=== PATIENT | male | born 1955 | race Caucasian/White ===

== ENCOUNTER 2018-02-25 20:32 | Inpatient (IN) | payer BC ==
[2018-02-25 21:48] LABS: BASO # 0.1 K/uL (0.0-0.2); BASO % 0.5 % (0.0-2.0); EOS % 0.3 % (0.0-4.0); LYMPH # 0.4 K/uL (1.0-4.3); LYMPH % 3.7 % (20.0-40.0); MEAN CELL VOLUME 81.8 fl (80.0-94.0); MEAN CORPUSCULAR HEMOGLOBIN 28.2 pg (27.0-31.0); MEAN CORPUSCULAR HGB CONC 34.5 g/dL (33.0-37.0); MEAN PLATELET VOLUME 6.9 fl (7.2-11.7); MONO # 0.7 K/uL (0.0-0.8); MONO % 6.4 % (0.0-10.0); NEUT # 10.1 K/uL (1.8-7.0); NEUT % 89.1 % (50.0-75.0); PLATELET COUNT 204 K/uL (130-400); RBC 4.26 Mil/uL (4.40-5.90); RED CELL DISTRIBUTION WIDTH 14.9 % (11.5-14.5); WHITE BLOOD COUNT 11.4 K/uL (4.8-10.8)
[2018-02-25] MEDS ORDERED: Sodium Chloride 0.9% 1,000 ML IV STA ×2 (21:50→23:17)
[2018-02-25] MEDS ORDERED: Iohexol 240 (50 ml) PO ONE (21:50)
[2018-02-25 22:05] LABS: ALB/GLOB RATIO 1.7 (1.0-2.1); ALBUMIN 4.3 g/dL (3.5-5.0); ALT/SGPT 460 U/L (21-72); AST/SGOT 485 U/L (17-59); BLOOD UREA NITROGEN 15 mg/dl (9-20); CALCIUM 9.3 mg/dL (8.4-10.2); GFR AFRICAN-AMERICAN > 60; GFR NON-AFRICAN AMERICAN > 60
--- NOTE | 2018-02-25 22:08 | ED PDOC ---
HPI: Abdomen Time Seen by Provider: 02/25/18 20:40 Chief Complaint (Nursing): Abdominal Pain Chief Complaint (Provider): Abdominal Pain History Per: Patient History/Exam Limitations: no limitations Last Bowel Movement: Days Ago (x4) Additional Complaint(s): Patient is a 62 y/o male with history of hypertnesion, diabetes, and bph who presents to the ED complaining of abdominal pain with associated nausea. Patient states he has also no had a bowel movement in the past x4 days however notes that this is normal. Patient reports that he feels his abdomen is distended. He denies any vomiting or diarrhea. Past Medical History Reviewed: Historical Data, Nursing Documentation, Vital Signs Vital Signs: Last Vital Signs Temp 98.7 F 02/26/18 03:30 Pulse 98 H 02/26/18 04:00 Resp 15 02/26/18 04:00 BP 140/60 02/26/18 04:00 Pulse Ox 96 02/26/18 04:00 - Medical History PMH: Benign Prostatic Hyperplasia, Diabetes, HTN, Hypercholesterolemia Denies: Chronic Kidney Disease - Surgical History Other surgeries: bilateral hip replacement - Family History Family History: States: Unknown Family Hx - Social History Current smoker - smoking cessation education provided: No Alcohol: None Drugs: Denies - Home Medications Home Medications: Ambulatory Orders Medication Instructions Recorded Aspirin [Aspirin] 81 mg PO DAILY 03/17/15 Ezetimibe [Zetia] 10 mg PO DAILY 03/17/15 Hydrochlorothiazide 25 mg PO DAILY 03/17/15 [Hydrochlorothiazide] Losartan/Hydrochlorothiazide 1 tab PO DAILY 03/17/15 [Hyzaar 100-12.5 Tablet] Tamsulosin [Flomax] 0.4 mg PO DAILY 03/17/15 Atorvastatin [Lipitor] 20 mg PO DAILY 02/26/18 Docusate Sodium [Stool Softener] 100 mg PO DAILY 02/26/18 Furosemide [Lasix] 20 mg PO DAILY 02/26/18 - Allergies Allergies/Adverse Reactions: Allergies Allergy/AdvReac Type Severity Reaction Status Date / Time iodine Allergy RASH Verified 02/25/18 20:44 Review of Systems ROS Statement: Except As Marked, All Systems Reviewed And Found Negative Constitutional: Negative for: Fever Gastrointestinal: Positive for: Nausea, Abdominal Pain. Negative for: Vomiting , Diarrhea Physical Exam - Reviewed Nursing Documentation Reviewed: Yes Vital Signs Reviewed: Yes - Physical Exam Appears: Positive for: Uncomfortable Head Exam: Positive for: ATRAUMATIC, NORMOCEPHALIC Skin: Positive for: Normal Color, Warm, Dry Eye Exam: Positive for: EOMI, Normal appearance, PERRL ENT: Positive for: Normal ENT Inspection Neck: Positive for: Normal Cardiovascular/Chest: Positive for: Regular Rate, Rhythm. Negative for: Murmur Respiratory: Positive for: Normal Breath Sounds. Negative for: Respiratory Distress Gastrointestinal/Abdominal: Positive for: Bowel Sounds (diminished), Soft, Tenderness (diffusely tender), Distended (slightly). Negative for: Guarding, Rebound Back: Positive for: Normal Inspection Extremity: Positive for: Normal ROM. Negative for: Pedal Edema, Deformity Neurologic/Psych: Positive for: Alert, Oriented. Negative for: Motor/Sensory Deficits - Laboratory Results Result Diagrams: 02/26/18 04:50 02/26/18 04:50 - ECG O2 Sat by Pulse Oximetry: 97 (RA) Pulse Ox Interpretation: Normal - Critical Care Total Time (In Min): 45 Documented Critical Care: Time excludes all time spent performint seperately billable procedures Medical Decision Making Medical Decision Making: Time: 21:50 Initial plan: abdominal pain, rule out diverticulitis, appendicitis, constipation --CT abd & pelvis --CMP --Lipase --CBC w/ differential --Omnipaque --Toradol --Zofran Patient was here for abdominal pain in 03/2015 and was diagnosed with colitis. Patient requested no narcotics as it makes him nauseous. 2308 Patient reports rigor after cold IV fluids. On re-exam, patient noted to be tachycardic and with a low grade fever. Blood pressure is normal. Patient with elevated white count, VBG with lactate ordered CT abd/pelvis pending. 2317 Patient with elevated lipase, low potassium and elevated LFTs. Patient given Toradol 15mg IV, Zofran 4mg IV and 2nd liter of IV Fluids. 2319 VBG reviewed, patient with lactate level of 4.4 Blood cultures sent. IV Zosyn and Flagyl given. 2[address] sepsis [address]. 0212 CT Abdomen/Pelvis FINDINGS: Lung bases: There is mild bibasilar atelectasis. ABDOMEN: Liver: Unremarkable. No mass. Gallbladder and bile ducts: Unremarkable. No calcified stones. No ductal dilation. Pancreas: There is moderate diffuse peripancreatic inflammatory stranding, consistent with moderate acute pancreatitis. No ductal dilation. Spleen: Unremarkable. No splenomegaly. Adrenals: Unremarkable. No mass. Kidneys and ureters: Unremarkable. No solid mass. No hydronephrosis. Stomach and bowel: There is a small duodenal diverticulum. Bilateral hip replacements. There are mildly distended loops of small bowel without a transition point to suggest small bowel obstruction. There is contrast throughout the small bowel. There is contrast in the cecum and ascending colon. The duodenum is thick walled probably reactive inflammation. Duodenitis is not excluded. PELVIS: Appendix: No findings to suggest acute appendicitis. Bladder: Unremarkable. No mass. Reproductive: Unremarkable as visualized. ABDOMEN and PELVIS: Intraperitoneal space: Unremarkable. No free air. No significant fluid collection. Bones/joints: Osteopenia and degenerative changes Soft tissues: Unremarkable. Vasculature: The vasculature demonstrates diffuse moderate atherosclerotic calcification. No abdominal aortic aneurysm. IMPRESSION: Findings consistent with acute pancreatitis. Thick walled duodenum, probably reactive inflammation. Duodenitis is not excluded. pt give more iv fluids and pain meds. pt aware of diagnosis, questions answered to pt and eife pt will go to icu, given sepsis and source of pancreatitis. dr nikia alvarez aware (hospitalist/harness brusher) pt feevaluated less figors as compared to before, ----- Scribe Attestation: Documented by Rufino Da Silva, acting as a scribe for Daisy Cruz MD Provider Scribe Attestation: All medical record entries made by the Scribe were at my direction and personally dictated by me. I have reviewed the chart and agree that the record accurately reflects my personal performance of the history, physical exam, medical decision making, and the department course for this patient. I have also personally directed, reviewed, and agree with the discharge instructions and disposition. Disposition - Clinical Impression Clinical Impression: Abdominal pain, Pancreatitis - Patient ED Disposition Is Patient to be Admitted: Yes Counseled Patient/Family Regarding: Studies Performed, Diagnosis - Disposition Disposition Time: 03:00 Condition: SERIOUS
[2018-02-25 22:34] LABS: LIPASE 6247 U/L (23-300)
[2018-02-25 23:18] LABS: VENOUS BLOOD GAS PCO2 57 mmHg (40-60); VENOUS BLOOD GAS PO2 17 mm/Hg (30-55); VENOUS BLOOD PH 7.37 (7.32-7.43)
[2018-02-25] MEDS ORDERED: Piperacillin/Tazobact 4.5 GM in Sodium Chloride 0.9% 100 ML IVPB STA (23:19)
[2018-02-25] MEDS ORDERED: Potassium Chl 20 mEq in NS 1,000 ML IV SCH (23:30)
[2018-02-25 23:37] LABS: BANDS 3 % (0-2); LYMPHOCYTE 1 % (20-50); MONOCYTE 3 % (0-10); NEUTROPHIL 91 % (42-75); PLATELET ESTIMATE NORMAL (NORMAL); REACTIVE LYMPHOCYTES 2 % (0-0); TOTAL CELLS COUNTED 100
[2018-02-26 00:19] LABS: URINE BACTERIA OCC (<OCC); URINE BILIRUBIN NEGATIVE (NEGATIVE); URINE BLOOD NEGATIVE (NEGATIVE); URINE CLARITY SLIGHTY-CLOUDY (Clear); URINE COLOR YELLOW (YELLOW); URINE GLUCOSE (UA) NEG (Normal); URINE LEUKOCYTE ESTERASE NEG Leu/uL (Negative); URINE PROTEIN NEGATIVE (NEGATIVE)
[2018-02-26] MEDS ORDERED: Magnesium Sulfate 2 gm/50 ml 2 GM/50 ML BAG IVPB ONE ×2 (00:58→02:27)
[2018-02-26] MEDS ORDERED: Magnesium Sulfate 2 gm/50 ml 2 GM/50 ML BAG ONE ×2 (01:00→03:03)
[2018-02-26] MEDS ORDERED: Sodium Chloride 0.9% 1,000 ML IV SCH (02:30)
--- NOTE | 2018-02-26 02:51 | CP.PCM.HP ---
History of Present Illness - History of Present Illness History of Present Illness: cc: abdominal pain HPI: 62M PMH DM, BPH presents to the ED with moderate to severe worsening sharp generalized abdominal pain with associated nausea and abdominal distension. No BM x4 days. Denies ETOH. Temp 100.4, HR 103, 107/65, 12, 97RA. CT: + pancreatitis without mention of abscess or pseudocyst on initial report, + duodenitis likely reactive inflammation. WBC 11.4 BANDS 3, lactic acid 4.4, potassium 3.0, magnesium <0.2. TBili 4.4, AST/ALT/ALP 485/460/136, Lipase 6247. Pt has received LRx1, NSX2, Mg 2gm, KCl 20 meq, zosyn x1. Admit to ICU for further management and care. ROS: per HPI all other systems reviewed and negative. Present on Admission - Present on Admission Any Indicators Present on Admission: No Past Patient History - Past Social History Alcohol: None Drugs: Denies - CARDIAC Hx Hypercholesterolemia: Yes Hx Hypertension: Yes - PULMONARY Hx Respiratory Disorders: No - NEUROLOGICAL Hx Neurological Disorder: No - HEENT Hx HEENT Problems: No - RENAL Hx Chronic Kidney Disease: No - ENDOCRINE/METABOLIC Hx Endocrine Disorders: No - HEMATOLOGICAL/ONCOLOGICAL Hx Blood Disorders: No - INTEGUMENTARY Hx Dermatological Problems: No - MUSCULOSKELETAL/RHEUMATOLOGICAL Hx Musculoskeletal Disorders: No - GASTROINTESTINAL Hx Gastrointestinal Disorders: No - GENITOURINARY/GYNECOLOGICAL Hx Genitourinary Disorders: No - PSYCHIATRIC Hx Psychophysiologic Disorder: No Hx Substance Use: No - SURGICAL HISTORY Hx Surgeries: Yes Hx Orthopedic Surgery: Yes (bilateral hip replacement) - ANESTHESIA Hx Anesthesia: Yes Meds Allergies/Adverse Reactions: Allergies Allergy/AdvReac Type Severity Reaction Status Date / Time iodine Allergy RASH Verified 02/25/18 20:44 Physical Exam - Constitutional Additional comments: Vitals Reviewed GEN: WDWN, alert, cooperative HEENT: NCAT, PERRL, EOMI HEART: RRR, +S1S2, NO MRG LUNG: CTAB, NO WRR ABD: soft, +GENERALIZED TENDERNESS, ND, No HSM, No masses EXT: normal pedal pulses, normal capillary refill NEURO: awake, alert, no focal deficits SKIN: warm, dry PSYCH: normal mood, normal affect Results - Vital Signs Recent Vital Signs: Last Vital Signs Temp 98.4 F 02/26/18 01:38 Pulse 103 H 02/26/18 01:53 Resp 12 02/26/18 01:53 BP 107/65 02/26/18 01:53 Pulse Ox 97 02/26/18 02:18 - Labs Result Diagrams: 02/25/18 21:45 02/25/18 21:45 Labs: Laboratory Results - last 24 hr 02/25/18 02/25/18 02/25/18 21:45 21:45 23:14 WBC 11.4 H RBC 4.26 L Hgb 12.0 Hct 34.8 L MCV 81.8 D MCH 28.2 MCHC 34.5 RDW 14.9 H Plt Count 204 MPV 6.9 L Neut % (Auto) 89.1 H Lymph % (Auto) 3.7 L Gladwin % (Auto) 6.4 Eos % (Auto) 0.3 Baso % (Auto) 0.5 Neut # (Auto) 10.1 H Lymph # (Auto) 0.4 L Gladwin # (Auto) 0.7 Eos # (Auto) 0.0 Baso # (Auto) 0.1 Neutrophils % (Manual) 91 H Band Neutrophils % 3 H Lymphocytes % (Manual) 1 L Reactive Lymphs % 2 H Monocytes % (Manual) 3 Platelet Estimate Normal pO2 17 L VBG pH 7.37 VBG pCO2 57 VBG HCO3 27.6 VBG Total CO2 34.7 H VBG O2 Sat (Calc) 23.4 L VBG Base Excess 6.0 H VBG Potassium 3.0 L Glucose 131 H Lactate 4.4 H* FiO2 21.0 Crit Value Called To Nancy najera md Crit Value Called By 333 Crit Value Read Back Y Blood Gas Notified Time 2318 Sodium 136 135.0 Potassium 3.0 L Chloride 93 L 94.0 L Carbon Dioxide 31 H Anion Gap 15 BUN 15 Creatinine 0.9 Est GFR ( Amer) > 60 Est GFR (Non-Af Amer) > 60 Random Glucose 135 H Calcium 9.3 Phosphorus Magnesium Total Bilirubin 4.4 H AST 485 H ALT 460 H D Alkaline Phosphatase 136 H Total Protein 6.8 Albumin 4.3 Globulin 2.5 Albumin/Globulin Ratio 1.7 Lipase 6247 H Venous Blood Potassium 3.0 L Urine Color Urine Clarity Urine pH Ur Specific Clifford Urine Protein Urine Glucose (UA) Urine Ketones Urine Blood Urine Nitrate Urine Bilirubin Urine Urobilinogen Ur Leukocyte Esterase Urine RBC (Auto) Urine Microscopic WBC Urine Bacteria 02/25/18 02/25/18 23:54 23:54 WBC RBC Hgb Hct MCV MCH MCHC RDW Plt Count MPV Neut % (Auto) Lymph % (Auto) Gladwin % (Auto) Eos % (Auto) Baso % (Auto) Neut # (Auto) Lymph # (Auto) Gladwin # (Auto) Eos # (Auto) Baso # (Auto) Neutrophils % (Manual) Band Neutrophils % Lymphocytes % (Manual) Reactive Lymphs % Monocytes % (Manual) Platelet Estimate pO2 VBG pH VBG pCO2 VBG HCO3 VBG Total CO2 VBG O2 Sat (Calc) VBG Base Excess VBG Potassium Glucose Lactate FiO2 Crit Value Called To Crit Value Called By Crit Value Read Back Blood Gas Notified Time Sodium Potassium Chloride Carbon Dioxide Anion Gap BUN Creatinine Est GFR ( Amer) Est GFR (Non-Af Amer) Random Glucose Calcium Phosphorus 4.0 Magnesium < 0.2 L* Total Bilirubin AST ALT Alkaline Phosphatase Total Protein Albumin Globulin Albumin/Globulin Ratio Lipase Venous Blood Potassium Urine Color Yellow Urine Clarity Slighty-cloudy Urine pH 6.0 Ur Specific Clifford 1.010 Urine Protein Negative Urine Glucose (UA) Neg Urine Ketones Negative Urine Blood Negative Urine Nitrate Negative Urine Bilirubin Negative Urine Urobilinogen 2.0 Ur Leukocyte Esterase Neg Urine RBC (Auto) 2 Urine Microscopic WBC 1 Urine Bacteria Occ H Assessment & Plan - Assessment and Plan (Free Text) Plan: 62M PMH DM, BPH presents to the ED with moderate to severe worsening sharp generalized abdominal pain with associated nausea and abdominal distension. No BM x4 days. Denies ETOH. Temp 100.4, HR 103, 107/65, 12, 97RA. CT: + pancreatitis without mention of abscess or pseudocyst on initial report, + duodenitis likely reactive inflammation. WBC 11.4 BANDS 3, lactic acid 4.4, potassium 3.0, magnesium <0.2. TBili 4.4, AST/ALT/ALP 485/460/136, Lipase 6247. Pt has received LRx1, NSX2, Mg 2gm, KCl 20 meq, zosyn x1. Admit to ICU for close monitoring, further management and care. Sepsis 2/2 Pancreatitis gallstone vs drug induced vs ETOH vs hypertriglyceridemia Elevated Transaminases Elevated Tbili Lipase 6K, Temp 100.4, tachycardia 103-127, WBC 11K with bands, LA 4.4 CT +pancreatitis without mention of abscess/pseudocyst, with reactive duodenitis , no note of cholecystitis nor cholelithiasis Abd US to eval cholelithiasis/choledocholithiasis Trigs pending, no hx trauma. Pt on several sulfa, class I/II potentially pancreatitis inducing drugs: furosemide, hydrochlorothiazide, losartan No abx indicated at this time received LR x1, NSx2, continue with LR @ 250cc/hr NPO, zofran for nausea pain control with Toradol 30 mod pain, Dilaudid 0.5 mg severe pain GI consult Dr. Parks Hypokalemia Hypomagnesemia KCl 20 meq ordered in ED additional 40 meq ordered total 4 gm of Mg ordered recheck in AM DM accuchecks ISS mod BPH hold Flomax, NPO DVT PPX lovenox
[2018-02-26 03:29] LABS: VENOUS BLOOD GAS PCO2 44 mmHg (40-60); VENOUS BLOOD GAS PO2 46 mm/Hg (30-55); VENOUS BLOOD PH 7.44 (7.32-7.43)
[2018-02-26] MEDS: Lactated Ringer's 1,000 ML IV SCH ×4 (03:45→19:50)
[2018-02-26] MEDS: Potassium CL 10 MEQ/50 ML 50 ML IVPB SCH ×4 (05:00→08:48)
[2018-02-26 05:33] LABS: HEMOGLOBIN 10.2 g/dL (12.0-18.0); MEAN CELL VOLUME 82.9 fl (80.0-94.0); MEAN CORPUSCULAR HEMOGLOBIN 28.9 pg (27.0-31.0); MEAN CORPUSCULAR HGB CONC 34.9 g/dL (33.0-37.0); RBC 3.54 Mil/uL (4.40-5.90); RED CELL DISTRIBUTION WIDTH 15.3 % (11.5-14.5); WHITE BLOOD COUNT 9.3 K/uL (4.8-10.8)
[2018-02-26 06:04] LABS: BLOOD UREA NITROGEN 11 mg/dl (9-20); CALCIUM 8.3 mg/dL (8.4-10.2); GFR AFRICAN-AMERICAN > 60; GFR NON-AFRICAN AMERICAN > 60
[2018-02-26] MEDS ORDERED: Insulin Lispro (humaLOG) 100 Units/ml Inj SC SCH (07:30)
[2018-02-26] MEDS ORDERED: Potassium CL 10mEq/100ml 100 ML IVPB SCH (08:00)
[2018-02-26] MEDS: Enoxaparin 40 mg Syringe SC SCH (08:48)
[2018-02-26] MEDS: Potassium CL 10mEq/100ml 100 ML IVPB SCH ×3 (09:59→12:55)
--- NOTE | 2018-02-26 10:12 | CT ---
Date of service: 02/26/2018 PROCEDURE: CT Abdomen and Pelvis with contrast HISTORY: Diffuse abdominal pain COMPARISON: None. TECHNIQUE: CT scan of the abdomen and pelvis was performed without administration of intravenous contrast. Oral contrast was administered. Coronal and sagittal reformatted images were obtained. Radiation dose: Total exam DLP = 778.09 mGy-cm. This CT exam was performed using one or more of the following dose reduction techniques: Automated exposure control, adjustment of the mA and/or kV according to patient size, and/or use of iterative reconstruction technique. FINDINGS: LOWER THORAX: Subsegmental atelectasis in the right lower lobe. The left lung base is clear. LIVER: Normal in size. No gross lesion or ductal dilatation. GALLBLADDER AND BILE DUCTS: No calcified gallstones. PANCREAS: Normal in sinus. No gross lesion or ductal dilatation. There are mild peripancreatic inflammatory changes however the pancreatic margins are distinct hand there is no evidence for edema in the pancreas. SPLEEN: Normal in size. ADRENALS: No discrete nodule. KIDNEYS AND URETERS: Normal in size without nephrolithiasis. No hydronephrosis. Nonspecific perinephric fat stranding. VASCULATURE: No aortic aneurysm. BOWEL: There is mild circumferential mural thickening in the gastric antrum and moderate mural thickening in the pylorus. There is also moderate circumferential mural thickening in the duodenal cap and 2nd portion of the duodenum. There is a probable diverticulum the 2nd portion of the duodenum. There are extensive inflammatory changes surrounding the duodenum extending to the retroperitoneum on the right side. There is also mild dilatation of the proximal small bowel loops likely related to ileus. The distal small bowel loops are normal in caliber. The colon is unremarkable. APPENDIX: Normal appendix. PERITONEUM: Unremarkable. No free fluid. No free air. LYMPH NODES: No enlarged lymph nodes. BLADDER: Well distended and normal in appearance. REPRODUCTIVE: The prostate gland is normal in size. BONES: No acute fracture. Status post bilateral hip arthroplasties. OTHER FINDINGS: None. IMPRESSION: Findings are most compatible with acute nonspecific duodenitis with significant inflammatory changes in the surrounding mesenteric fat extending to the peripancreatic region and in the right retroperitoneum. No definite evidence for perforation. Also noted is a diverticulum in the 2nd portion of the duodenum. Please correlate with EGD if clinically indicated. The peripancreatic inflammatory changes are likely secondary to duodenitis rather than primary pancreatitis. The final impression differs from Vrad preliminary report.
[2018-02-26] MEDS ORDERED: Pneumococcal 23-Valent Vaccine IM ONE (11:45)
--- NOTE | 2018-02-26 12:31 | US ---
Date of service: 02/26/2018 HISTORY: eval cholelithiasis/choledocholithiasis COMPARISON: None. TECHNIQUE: Sonographic evaluation of the abdomen. FINDINGS: LIVER: Measures 18.9 cm. Hepatopedal blood flow. Fatty infiltration manifest ultrasonographically as increased echogenicity of the liver parenchyma. No mass. No intrahepatic bile duct dilatation. GALLBLADDER: Unremarkable. No gallstones. COMMON BILE DUCT: Measures 4.9 mm. No stones. No dilatation. PANCREAS: Unremarkable as visualized. No mass. No ductal dilatation. RIGHT KIDNEY: Measures 6.1 x 12.5cm. Normal echogenicity. No calculus, mass, or hydronephrosis. LEFT KIDNEY: Measures 7.2 x 12.3cm. Normal echogenicity. No calculus, mass, or hydronephrosis. SPLEEN: Normal in size and contour. No mass. AORTA: No aneurysmal dilatation. IVC: Unremarkable. OTHER FINDINGS: None. IMPRESSION: Hepatomegaly, hepatic steatosis. Otherwise unremarkable study
[2018-02-26] MEDS: Piperacillin/Tazobact 3.375 GM in Sodium Chloride 0.9% 100 ML IVPB SCH ×3 (12:56→21:53)
[2018-02-26 15:42] LABS: ALB/GLOB RATIO 1.4 (1.0-2.1); ALBUMIN 3.2 g/dL (3.5-5.0); BILIRUBIN,DIRECT 3.5 mg/ml (0.0-0.4)
[2018-02-26 18:12] LABS: BLOOD UREA NITROGEN 13 mg/dl (9-20); CALCIUM 8.3 mg/dL (8.4-10.2); GFR AFRICAN-AMERICAN > 60; GFR NON-AFRICAN AMERICAN > 60
[2018-02-27] MEDS: Piperacillin/Tazobact 3.375 GM in Sodium Chloride 0.9% 100 ML IVPB SCH ×2 (04:26→10:17)
[2018-02-27 06:05] LABS: ALB/GLOB RATIO 1.3 (1.0-2.1); ALBUMIN 3.2 g/dL (3.5-5.0); ALT/SGPT 221 U/L (21-72); AST/SGOT 111 U/L (17-59); BLOOD UREA NITROGEN 14 mg/dl (9-20); CALCIUM 8.4 mg/dL (8.4-10.2); GFR AFRICAN-AMERICAN > 60; GFR NON-AFRICAN AMERICAN > 60; HDL CHOLESTEROL 20 MG/DL (30-70); LIPASE 671 U/L (23-300)
[2018-02-27 06:06] LABS: BASO % 0.3 % (0.0-2.0); EOS # 0.1 K/uL (0.0-0.7); EOS % 1.9 % (0.0-4.0); LYMPH # 0.9 K/uL (1.0-4.3); LYMPH % 12.3 % (20.0-40.0); MEAN CELL VOLUME 83.9 fl (80.0-94.0); MEAN CORPUSCULAR HEMOGLOBIN 28.6 pg (27.0-31.0); MEAN CORPUSCULAR HGB CONC 34.1 g/dL (33.0-37.0); MONO # 0.4 K/uL (0.0-0.8); MONO % 5.5 % (0.0-10.0); NEUT # 6.1 K/uL (1.8-7.0); RBC 3.48 Mil/uL (4.40-5.90); RED CELL DISTRIBUTION WIDTH 15.2 % (11.5-14.5); WHITE BLOOD COUNT 7.6 K/uL (4.8-10.8)
[2018-02-27 06:09] LABS: LDL CHOLESTEROL 30 mg/dL (0-129)
[2018-02-27] MEDS ORDERED: Potassium Phosphate 30 MMOLE in Sodium Chloride 0.9% 250 ML IV ONE (07:54)
--- NOTE | 2018-02-27 08:08 | CON ---
Copied To: Sancho Parks MD/ PhD Attending MD: Sancho Parks MD/ PhD DATE: 02/26/2018 REASON FOR CONSULTATION: Pancreatitis. HISTORY OF PRESENT ILLNESS: This is a pleasant 62-year-old man with history of diabetes, BPH, presents for moderate to severe worsening abdominal pain and discomfort for the past 3 to 4 days. No nausea. No vomiting. All symptoms improved and never had it before heartburn or weight loss. Currently lying in bed comfortable, in no apparent distress. PAST MEDICAL HISTORY: As above. PAST SURGICAL HISTORY: As above. MEDICATIONS: Have been reviewed. REVIEW OF SYSTEMS: All other systems have been reviewed and negative apart from the HPI. PHYSICAL EXAMINATION: VITAL SIGNS: Here in the hospital are grossly unremarkable. GENERA: This is a pleasant elderly female, lying in bed comfortably, in no apparent distress. HEENT: Head is normocephalic and atraumatic. Eyes, pupils are equally reactive to light bilaterally. No conjunctival pallor or icterus. NECK: Supple. Normal range of motion. No lymphadenopathy appreciated. LUNGS: Coarse breath sounds bilaterally. HEART: S1 and S2. Regular rate and rhythm. No murmurs appreciated. ABDOMEN: Soft and nontender. Bowel sounds are present with some epigastric discomfort. No rebound. No guarding. RECTAL: Deferred. EXTREMITIES: Pulses felt bilaterally. SKIN: Warm, dry, and intact. NEUROLOGIC: A and O x3. LABORATORY DATA: All labs and radiology have been reviewed. WBC 11.4 down to 9.3, hemoglobin 12 to 10.2 which is an appropriate drop, platelet count is normal. Total bili is 4.4, AST 45, ALT 46, alk phos 136, lipase of 6247, triglycerides are normal. Alcohol was negative. CAT scan shows duodenitis as well as duodenal diverticulum. ASSESSMENT AND PLAN: This is a 62-year-old man with pancreatitis, the etiology of which is interesting, possibly this is alcohol because last intake was three days prior to episode, possibly from Lasix which was started few days prior to the episodes or gallstones. The ultrasound is pending to rule out gallbladder. Aggressive IV hydration continues, can have Lasix for now. Pepcid once a day orally. Pain control as needed. We will follow the patient with you. Trend LFTs. Thank you for the consult. Sancho Parks MD/ cc: Gianna Beauchamp DO
[2018-02-27] MEDS: Enoxaparin 40 mg Syringe SC SCH (08:16)
[2018-02-27] MEDS: Lactated Ringer's 1,000 ML IV SCH ×2 (10:25→22:36)
--- NOTE | 2018-02-27 11:14 | CP.CCUPN ---
CCU Subjective - Physician Review Subjective (Free Text): 02/27/18 15:14 The patient was Seen/interviewed and examined by me at the bedside during ICU round, Medical records reviewed and Management issues were discussed and formulated with the house staff. Events reviewed This morning he feels well and is hemodynamically stable, Pt AAO x3 Afebrile, NSR on the monitor. Only complaint is nausea, Abd pain much better, denies any chest pain or SOB and the plan is to transfer out of the ICU. Pt tolerating liquid diet, will advance, Decrease IV Fluids This morning labs revealed improved LFT and lipase, K 3.6 Hold off antibiotics for now CCU Objective - Vital Signs / Intake & Output Vital Signs (Last 4 hours): Vital Signs Temp Pulse Resp BP Pulse Ox 02/27/18 08:00 98.3 F 71 17 129/68 92 L Intake and Output (Last 8hrs): Intake & Output 02/26/18 02/27/18 02/27/18 22:59 06:59 14:59 Intake Total 3950 2000 350 Output Total 500 Balance 3450 2000 350 Intake: IV 3250 2000 250 Intake, Piggyback 700 100 Output: Urine 500 Urine, Voided 500 Other: # Voids Urine, Voided 1 # Bowel Movements 1 - Physical Exam Head: Positive for: Atraumatic, Normocephalic Pupils: Positive for: PERRL Extroacular Muscles: Positive for: EOMI Conjunctiva: Positive for: Normal Ears: Positive for: Normal Mouth: Positive for: Moist Mucous Membranes Neck: Positive for: Normal Range of Motion, Trachea Midline. Negative for: Meningeal Signs, MIDLINE TENDERNESS, Paraspinal Tenderness, JVD, Lymphadenopathy , Bruit, Other Respiratory/Chest: Positive for: Clear to Auscultation, Good Air Exchange. Negative for: Respiratory Distress, Accessory Muscle Use Cardiovascular: Positive for: Regular Rate and Rhythm, Normal S1, S2, Peripheal Pulses Present. Negative for: Murmurs, Tachycardic, Bradycardic Abdomen: Positive for: Normal Bowel Sounds. Negative for: Tenderness, Distention, Peritoneal Signs, Rebound, Guarding Back: Negative for: CVA Tenderness Upper Extremity: Positive for: Normal Inspection Lower Extremity: Positive for: Normal Inspection. Negative for: Edema, CALF TENDERNESS - Medications Active Medications: Active Medications Generic Name Dose Route Start Last Admin Trade Name Freq PRN Reason Stop Dose Admin Enoxaparin Sodium 40 mg 02/26/18 09:00 02/27/18 08:16 Lovenox SC 40 mg DAILY [facility] Administration Protocol Potassium Chloride/Sodium Chloride 1,000 mls @ 200 mls/hr 02/25/18 23:30 07/03 23:52 Potassium Chl 20 Meq In Ns IV 200 mls/hr .Q5H [facility] Administration Piperacillin Sod/Tazobactam 100 mls @ 100 mls/hr 02/26/18 10:00 02/27/18 10: 17 Sod 3.375 gm/ Sodium Chloride IVPB 100 mls/hr Q6 [facility] Administration Protocol Potassium Phosphate 30 mmole/ 260 mls @ 65 mls/hr 02/27/18 07:54 02/27/18 10: 17 Sodium Chloride IV 02/27/18 11:53 65 mls/hr ONCE ONE Administration Lactated Ringer's 1,000 mls @ 100 mls/hr 02/27/18 10:30 Lactated Ringer's IV .Q10H [facility] Ondansetron HCl 4 mg 02/26/18 02:29 02/27/18 10:24 Zofran Inj IVP 4 mg Q6H PRN Administration Nausea/Vomiting Pantoprazole Sodium 40 mg 02/26/18 17:00 02/27/18 08:16 Protonix Inj IVP 40 mg BID [facility] Administration Pseudoephedrine HCl 30 mg 02/26/18 21:49 Sudafed Tab PO Q4 PRN Sinus symptoms Sucralfate 1 gm 02/27/18 13:00 Carafate Oral Susp PO QID [facility] Tramadol HCl 50 mg 02/26/18 17:07 02/26/18 21:52 Ultram PO 50 mg Q4 PRN Administration Pain, moderate (4-7) - Patient Studies Lab Studies: Microbiology Studies 02/25/18 23:54 Urine Culture - Final Urine,Clean Catch No Growth (<1,000 CFU/ML) 02/25/18 23:54 Blood Culture - Preliminary Blood-Venous Gram Negative Andrey Gram Stain - Final 02/26/18 00:24 Blood Culture - Preliminary Blood-Venous Gram Negative Andrey Gram Stain - Final Lab Studies 02/27/18 02/27/18 02/27/18 Range/Units 05:46 04:20 04:00 WBC 7.6 (4.8-10.8) K/uL RBC 3.48 L (4.40-5.90) Mil/uL Hgb 10.0 L (12.0-18.0) g/dL Hct 29.2 L (35.0-51.0) % MCV 83.9 (80.0-94.0) fl MCH 28.6 (27.0-31.0) pg MCHC 34.1 (33.0-37.0) g/dL RDW 15.2 H (11.5-14.5) % Plt Count 123 L D (130-400) K/uL MPV 8.0 (7.2-11.7) fl Neut % (Auto) 80.0 H (50.0-75.0) % Lymph % (Auto) 12.3 L (20.0-40.0) % Schuyler % (Auto) 5.5 (0.0-10.0) % Eos % (Auto) 1.9 (0.0-4.0) % Baso % (Auto) 0.3 (0.0-2.0) % Neut # (Auto) 6.1 (1.8-7.0) K/uL Lymph # (Auto) 0.9 L (1.0-4.3) K/uL Schuyler # (Auto) 0.4 (0.0-0.8) K/uL Eos # (Auto) 0.1 (0.0-0.7) K/uL Baso # (Auto) 0.0 (0.0-0.2) K/uL Sodium 137 (132-148) mmol/l Potassium 3.6 (3.6-5.0) MMOL/L Chloride 103 (98-107) mmol/L Carbon Dioxide 28 (22-30) mmol/L Anion Gap 10 (10-20) BUN 14 (9-20) mg/dl Creatinine 0.9 (0.8-1.5) mg/dl Est GFR ( Amer) > 60 Est GFR (Non-Af Amer) > 60 POC Glucose (mg/dL) (65-110) mg/dL Random Glucose 146 H (75-110) mg/dL Calcium 8.4 (8.4-10.2) mg/dL Phosphorus 2.2 L (2.5-4.5) mg/dl Magnesium 2.3 (1.6-2.3) MG/DL Iron 45 L (49-181) ug/dL Ferritin 975.0 H (17.9-464) ng/Ml Total Bilirubin 2.7 H (0.2-1.3) mg/dl Direct Bilirubin (0.0-0.4) mg/ml AST 111 H D (17-59) U/L ALT 221 H (21-72) U/L Alkaline Phosphatase 147 H (38-126) U/L Total Protein 5.7 L (6.3-8.2) G/DL Albumin 3.2 L (3.5-5.0) g/dL Globulin 2.5 (2.2-3.9) gm/dL Albumin/Globulin Ratio 1.3 (1.0-2.1) Triglycerides 299 H D (0-149) mg/DL Cholesterol 112 (0-199) mg/dL LDL Cholesterol Direct 30 (0-129) mg/dL HDL Cholesterol 20 L (30-70) MG/DL Lipase 671 H (23-300) U/L 02/26/18 02/26/18 02/26/18 Range/Units 16:58 15:15 03:51 WBC (4.8-10.8) K/uL RBC (4.40-5.90) Mil/uL Hgb (12.0-18.0) g/dL Hct (35.0-51.0) % MCV (80.0-94.0) fl MCH (27.0-31.0) pg MCHC (33.0-37.0) g/dL RDW (11.5-14.5) % Plt Count (130-400) K/uL MPV (7.2-11.7) fl Neut % (Auto) (50.0-75.0) % Lymph % (Auto) (20.0-40.0) % Schuyler % (Auto) (0.0-10.0) % Eos % (Auto) (0.0-4.0) % Baso % (Auto) (0.0-2.0) % Neut # (Auto) (1.8-7.0) K/uL Lymph # (Auto) (1.0-4.3) K/uL Schuyler # (Auto) (0.0-0.8) K/uL Eos # (Auto) (0.0-0.7) K/uL Baso # (Auto) (0.0-0.2) K/uL Sodium 136 (132-148) mmol/l Potassium 3.6 (3.6-5.0) MMOL/L Chloride 104 (98-107) mmol/L Carbon Dioxide 26 (22-30) mmol/L Anion Gap 10 (10-20) BUN 13 (9-20) mg/dl Creatinine 0.8 (0.8-1.5) mg/dl Est GFR ( Amer) > 60 Est GFR (Non-Af Amer) > 60 POC Glucose (mg/dL) 122 H (65-110) mg/dL Random Glucose 113 H (75-110) mg/dL Calcium 8.3 L (8.4-10.2) mg/dL Phosphorus (2.5-4.5) mg/dl Magnesium (1.6-2.3) MG/DL Iron (49-181) ug/dL Ferritin (17.9-464) ng/Ml Total Bilirubin 4.6 H (0.2-1.3) mg/dl Direct Bilirubin 3.5 H (0.0-0.4) mg/ml AST 161 H D (17-59) U/L ALT 268 H D (21-72) U/L Alkaline Phosphatase 128 H (38-126) U/L Total Protein 5.4 L (6.3-8.2) G/DL Albumin 3.2 L D (3.5-5.0) g/dL Globulin 2.2 (2.2-3.9) gm/dL Albumin/Globulin Ratio 1.4 (1.0-2.1) Triglycerides (0-149) mg/DL Cholesterol (0-199) mg/dL LDL Cholesterol Direct (0-129) mg/dL HDL Cholesterol (30-70) MG/DL Lipase 1459 H (23-300) U/L Laboratory Results - last 24 hr 02/26/18 02/26/18 02/26/18 03:51 15:15 16:58 WBC RBC Hgb Hct MCV MCH MCHC RDW Plt Count MPV Neut % (Auto) Lymph % (Auto) Schuyler % (Auto) Eos % (Auto) Baso % (Auto) Neut # (Auto) Lymph # (Auto) Schuyler # (Auto) Eos # (Auto) Baso # (Auto) Sodium 136 Potassium 3.6 Chloride 104 Carbon Dioxide 26 Anion Gap 10 BUN 13 Creatinine 0.8 Est GFR ( Amer) > 60 Est GFR (Non-Af Amer) > 60 POC Glucose (mg/dL) 122 H Random Glucose 113 H Calcium 8.3 L Phosphorus Magnesium Iron Ferritin Total Bilirubin 4.6 H Direct Bilirubin 3.5 H AST 161 H D ALT 268 H D Alkaline Phosphatase 128 H Total Protein 5.4 L Albumin 3.2 L D Globulin 2.2 Albumin/Globulin Ratio 1.4 Triglycerides Cholesterol LDL Cholesterol Direct HDL Cholesterol Lipase 1459 H 02/27/18 02/27/18 02/27/18 04:00 04:20 05:46 WBC 7.6 RBC 3.48 L Hgb 10.0 L Hct 29.2 L MCV 83.9 MCH 28.6 MCHC 34.1 RDW 15.2 H Plt Count 123 L D MPV 8.0 Neut % (Auto) 80.0 H Lymph % (Auto) 12.3 L Schuyler % (Auto) 5.5 Eos % (Auto) 1.9 Baso % (Auto) 0.3 Neut # (Auto) 6.1 Lymph # (Auto) 0.9 L Schuyler # (Auto) 0.4 Eos # (Auto) 0.1 Baso # (Auto) 0.0 Sodium 137 Potassium 3.6 Chloride 103 Carbon Dioxide 28 Anion Gap 10 BUN 14 Creatinine 0.9 Est GFR ( Amer) > 60 Est GFR (Non-Af Amer) > 60 POC Glucose (mg/dL) Random Glucose 146 H Calcium 8.4 Phosphorus 2.2 L Magnesium 2.3 Iron 45 L Ferritin 975.0 H Total Bilirubin 2.7 H Direct Bilirubin AST 111 H D ALT 221 H Alkaline Phosphatase 147 H Total Protein 5.7 L Albumin 3.2 L Globulin 2.5 Albumin/Globulin Ratio 1.3 Triglycerides 299 H D Cholesterol 112 LDL Cholesterol Direct 30 HDL Cholesterol 20 L Lipase 671 H EKG/Cardiology Studies: Cardiology / EKG Studies 02/27/18 EKG [ELECTROCARDIOGRAM] Stat Comment: Mode Of Transportation: PORTABLE Reason For Exam: irregular rhythm Review of Systems - Cardiovascular Cardiovascular: absent: Chest Pain, Chest Pain at Rest, Chest Pain with Activity , Claudication, Diaphoresis - Respiratory Respiratory: absent: Cough, Dyspnea, Hemoptysis, Dyspnea on Exertion, Wheezing, Snoring, Stridor - Gastrointestinal Gastrointestinal: Abdominal Pain. absent: Hematemesis, Hematochezia Critical Care Progress Note - Extremities/Vascular Does the Patient have a Central Venous Catheter?: No Does the Patient need a Central Venous Catheter?: No Does the Patient have a Yanes Catheter?: No Does the Patient need a Yanes Catheter?: No - Nutrition Nutrition: Nutrition Category Date Time Status Liquid Diet [DIET] Diets 02/26/18 Dinner Active Assessment/Plan (1) Abdominal pain Current Visit: Yes Status: Acute (2) Pancreatitis Current Visit: Yes Status: Acute (3) Colitis Current Visit: No Status: Acute
--- NOTE | 2018-02-27 12:20 | CP.PCM.PN ---
<Lesly Roy - Last Filed: 02/27/18 16:24> Subjective - Date & Time of Evaluation Date of Evaluation: 02/27/18 Time of Evaluation: 09:27 - Subjective Subjective: Patient seen and examined this AM with Dr. Prabhu Roy, , PGY-1 Patient c/o some nausea this AM, but feels better than yesterday. He denied any abdominal pain. Patient was afebrile throughout the night, VS stable. Objective - Vital Signs/Intake and Output Vital Signs (last 24 hours): Temp Pulse Resp BP Pulse Ox 98.3 F 90 20 122/86 96 02/27/18 08:00 02/27/18 10:00 02/27/18 10:00 02/27/18 10:00 02/27/18 10:00 Intake and Output: 02/27/18 02/27/18 06:59 18:59 Intake Total 2850 1600 Output Total 300 Balance 2850 1300 - Medications Medications: Current Medications Enoxaparin Sodium (Lovenox) 40 mg SC DAILY [facility] PRN Reason: Protocol Last Admin: 02/27/18 08:16 Dose: 40 mg Potassium Chloride/Sodium Chloride (Potassium Chl 20 Meq In Ns) 1,000 mls @ 200 mls/hr IV .Q5H [facility] Last Admin: 02/25/18 23:52 Dose: 200 mls/hr Piperacillin Sod/Tazobactam (Sod 3.375 gm/ Sodium Chloride) 100 mls @ 100 mls/ hr IVPB Q6 [facility] PRN Reason: Protocol Last Admin: 02/27/18 10:17 Dose: 100 mls/hr Lactated Ringer's (Lactated Ringer's) 1,000 mls @ 100 mls/hr IV .Q10H [facility] Ondansetron HCl (Zofran Inj) 4 mg IVP Q6H PRN PRN Reason: Nausea/Vomiting Last Admin: 02/27/18 10:24 Dose: 4 mg Pantoprazole Sodium (Protonix Inj) 40 mg IVP BID [facility] Last Admin: 02/27/18 08:16 Dose: 40 mg Pseudoephedrine HCl (Sudafed Tab) 30 mg PO Q4 PRN PRN Reason: Sinus symptoms Sucralfate (Carafate Oral Susp) 1 gm PO QID [facility] Tramadol HCl (Ultram) 50 mg PO Q4 PRN PRN Reason: Pain, moderate (4-7) Last Admin: 02/26/18 21:52 Dose: 50 mg - Labs Labs: 02/27/18 04:00 02/27/18 05:46 - Constitutional Appears: Non-toxic, No Acute Distress - Head Exam Head Exam: ATRAUMATIC - Eye Exam Eye Exam: EOMI - ENT Exam ENT Exam: Mucous Membranes Moist - Neck Exam Neck Exam: Full ROM - Respiratory Exam Additional comments: some crackles noted - Cardiovascular Exam Cardiovascular Exam: +S1, +S2 Additional comments: some crackles noted - GI/Abdominal Exam Additional comments: soft, nontender, no rigidity noted - Extremities Exam Additional comments: calves nontender - Back Exam Back Exam: Full ROM - Neurological Exam Neurological Exam: Oriented x3 - Psychiatric Exam Psychiatric exam: Normal Affect, Normal Mood - Skin Skin Exam: Dry, Intact Assessment and Plan - Assessment and Plan (Free Text) Assessment: 62 y/o M with PMH DM & BPH presented to ED with complaints of generalized abdominal pain + nausea. At that time, patient was found to have fever of 100.4 , HR 103, BP 107/65. Labs were significant for WBC 11.4, lactic acid 4.4, potassium 3.0, magnesium <0.2. TBili 4.4, AST/ALT/ALP 485/460/136, Lipase 6247. Abd CT was performed which showed pancreatitis likely due to duodenitis. Patient was admitted to ICU. 1. Pancreatitis likely secondary to Alcohol -Lipase(6000+ to 671), TBili(4.4 to 2.7), AST(485 to 111) & ALT(2460 to 221) all trending downward - Will continue Iv fluids at rate of 100ml to prevent fluid overload -Will continue IV pain meds PRN -Patient on liquid diet as tolerated -GI consulted -Will transfer to med-surg 2. Duodenitis -Ordered carafat -Continue Zofran as needed -Started patient on PPI 3. DVT prophylaxis -Will continue Lovenox <Chioma Pelletier - Last Filed: 02/27/18 17:31> Objective - Vital Signs/Intake and Output Vital Signs (last 24 hours): Temp Pulse Resp BP Pulse Ox 98.7 F 88 18 145/82 94 L 02/27/18 16:14 02/27/18 16:14 02/27/18 16:14 02/27/18 16:14 02/27/18 16:14 Intake and Output: 02/27/18 02/27/18 06:59 18:59 Intake Total 2850 2240 Output Total 300 Balance 2850 1940 - Medications Medications: Current Medications Enoxaparin Sodium (Lovenox) 40 mg SC DAILY [facility] PRN Reason: Protocol Last Admin: 02/27/18 08:16 Dose: 40 mg Potassium Chloride/Sodium Chloride (Potassium Chl 20 Meq In Ns) 1,000 mls @ 200 mls/hr IV .Q5H [facility] Last Admin: 02/25/18 23:52 Dose: 200 mls/hr Lactated Ringer's (Lactated Ringer's) 1,000 mls @ 100 mls/hr IV .Q10H [facility] Last Admin: 02/27/18 10:25 Dose: 100 mls/hr Ondansetron HCl (Zofran Inj) 4 mg IVP Q6H PRN PRN Reason: Nausea/Vomiting Last Admin: 02/27/18 10:24 Dose: 4 mg Pantoprazole Sodium (Protonix Inj) 40 mg IVP BID [facility] Last Admin: 02/27/18 08:16 Dose: 40 mg Pseudoephedrine HCl (Sudafed Tab) 30 mg PO Q4 PRN PRN Reason: Sinus symptoms Sucralfate (Carafate Oral Susp) 1 gm PO QID [facility] Last Admin: 02/27/18 13:35 Dose: 1 gm Tramadol HCl (Ultram) 50 mg PO Q4 PRN PRN Reason: Pain, moderate (4-7) Last Admin: 02/26/18 21:52 Dose: 50 mg - Labs Labs: 02/27/18 04:00 02/27/18 05:46 Attending/Attestation - Attestation I have personally seen and examined this patient.: Yes I have fully participated in the care of the patient.: Yes I have reviewed all pertinent clinical information, including history, physical exam and plan: Yes Notes (Text): Additional Note : Abn LFTs , trending down - Bilirubin elevated up to 4.6 , today down to 2.7 - no Choledocholithiasis on CT/US - Hepatitis screen neg - GI consulted
[2018-02-27 12:21] LABS: HEPATITIS B SURFACE AG Negative (NEGATIVE)
[2018-02-27 12:27] LABS: HEPATITIS A IGM NEGATIVE (NEGATIVE); HEPATITIS B CORE AB NEGATIVE (NEGATIVE)
[2018-02-27 12:39] LABS: HEPATITIS C ANTIBODY NEGATIVE (NEGATIVE)
[2018-02-27] MEDS: Sucralfate 1 gm/10 ml Oral Susp UD PO SCH ×3 (13:35→22:40)
--- NOTE | 2018-02-27 15:54 | CARD ---
APPROVED REPORT Date of service: 02/27/2018 EKG Measurement Heart [id number] <Conclusion> Sinus tachycardia with blocked premature atrial complexes Otherwise normal ECG
[2018-02-27] MEDS ORDERED: HYDROmorphone 0.5 mg/0.5 ml ISec IVP STA (17:45)
[2018-02-28] MEDS: Lactated Ringer's 1,000 ML IV SCH ×2 (03:24→06:30)
--- NOTE | 2018-02-28 03:49 | CP.PCM.PN ---
Subjective - Date & Time of Evaluation Date of Evaluation: 02/28/18 Time of Evaluation: 03:49 - Subjective Subjective: Called to evaluate patient with abdominal discomfort. The patient is awake and alert Refers abdominal distention, Generalized mild abdominal pain with no bowel movement in 2-3 days No nausea/vomits Exam: Abdomen: Full, firm, decreased bowel sounds, no significnt tenderness on palpation, no rebound tenderness Resp: harsh breath sounds at the left lung with decreased breath sound at the right lung base, No wheezes nor rhonchi CVS: S1 S2 RRR Neuro: Non focal Ext: No edema, non tender Bladder Scan: less than 200mls urine Imp: #. Abdominal r/o Ileus vs Constipation Plan: Stat Obstructive Series. #. Acute Pancreattitis - Continue Present treatment Objective - Vital Signs/Intake and Output Vital Signs (last 24 hours): Temp Pulse Resp BP Pulse Ox 98.6 F 90 19 135/76 99 02/28/18 00:42 02/28/18 00:42 02/28/18 00:42 02/28/18 00:42 02/28/18 00:42 Intake and Output: 02/27/18 02/28/18 18:59 06:59 Intake Total 2240 Output Total 300 Balance 1940 - Medications Medications: Current Medications Enoxaparin Sodium (Lovenox) 40 mg SC DAILY [facility] PRN Reason: Protocol Last Admin: 02/27/18 08:16 Dose: 40 mg Potassium Chloride/Sodium Chloride (Potassium Chl 20 Meq In Ns) 1,000 mls @ 200 mls/hr IV .Q5H [facility] Last Admin: 02/25/18 23:52 Dose: 200 mls/hr Lactated Ringer's (Lactated Ringer's) 1,000 mls @ 100 mls/hr IV .Q10H [facility] Last Admin: 02/28/18 03:24 Dose: 100 mls/hr Ketorolac Tromethamine (Toradol) 15 mg IVP Q6 PRN PRN Reason: Other Last Admin: 02/28/18 00:21 Dose: 15 mg Ondansetron HCl (Zofran Inj) 4 mg IVP Q6H PRN PRN Reason: Nausea/Vomiting Last Admin: 02/27/18 17:34 Dose: 4 mg Pantoprazole Sodium (Protonix Inj) 40 mg IVP BID [facility] Last Admin: 02/27/18 17:33 Dose: 40 mg Pseudoephedrine HCl (Sudafed Tab) 30 mg PO Q4 PRN PRN Reason: Sinus symptoms Sucralfate (Carafate Oral Susp) 1 gm PO QID [facility] Last Admin: 02/27/18 22:40 Dose: 1 gm Tamsulosin HCl (Flomax) 0.4 mg PO HS [facility] Last Admin: 02/27/18 22:40 Dose: 0.4 mg - Labs Labs: 02/27/18 04:00 02/27/18 05:46
[2018-02-28] MEDS ORDERED: Simethicone 80 mg Chewtab PO ONE (04:30)
[2018-02-28 06:44] LABS: HEMOGLOBIN 8.9 g/dL (12.0-18.0); MEAN CELL VOLUME 83.9 fl (80.0-94.0); MEAN CORPUSCULAR HEMOGLOBIN 28.9 pg (27.0-31.0); MEAN CORPUSCULAR HGB CONC 34.4 g/dL (33.0-37.0); RBC 3.09 Mil/uL (4.40-5.90); WHITE BLOOD COUNT 8.1 K/uL (4.8-10.8)
[2018-02-28 07:26] LABS: ALB/GLOB RATIO 1.2 (1.0-2.1); ALBUMIN 3.2 g/dL (3.5-5.0); ALT/SGPT 139 U/L (21-72); AST/SGOT 47 U/L (17-59); BLOOD UREA NITROGEN 14 mg/dl (9-20); CALCIUM 8.3 mg/dL (8.4-10.2); GFR AFRICAN-AMERICAN > 60; GFR NON-AFRICAN AMERICAN > 60; LIPASE 192 U/L (23-300)
[2018-02-28] MEDS ORDERED: Potassium Chloride 20 mEq/15 ml LIQ UD PO ONE (07:59)
--- NOTE | 2018-02-28 08:12 | RAD ---
Date of service: 02/28/2018 PROCEDURE: Radiographs of the chest and abdomen (obstructive series) HISTORY: Abdominal pain/distention/ no Bowel movement 3 days COMPARISON: Prior CT abdomen and pelvic report 02/26/2018 noted TECHNIQUE: AP radiograph of the chest, with upright and supine radiographs of the abdomen. FINDINGS: CHEST: Lungs: No consolidation. There are ill-defined prominent perihilar bronchovascular markings with right infrahilar indeterminate clustered nodular opacities. A concomitant minimal pulmonary interstitial pulmonary edema status also needs to be considered. Cardiovascular: Minimal cardiomegaly. . Minimal -mild pulmonary venous congestion Pleura: No pleural fluid. No pneumothorax. Other findings: None. ABDOMEN AND PELVIS: Bowel: Colonic contrast from prior abdomen and CT exam. . No evidence of mechanical obstruction. Free air: None. Bones: Thoraco lumbar spondylosis. Bilateral hip prostheses -total hip arthroplasties Other findings: None. IMPRESSION: No consolidation. Minimal cardiomegaly and minimal -mild pulmonary venous congestion.; mild interstitial pulmonary edema suspect. Infrahilar (right greater than left) clustered nonspecific nodular opacities -its significance (if any) is unknown. Noncontrast CT chest to further evaluate recommended. No evidence of mechanical bowel obstruction. Colonic contrast (from prior CT administration)
[2018-02-28] MEDS: Sucralfate 1 gm/10 ml Oral Susp UD PO SCH ×4 (08:41→21:15)
[2018-02-28] MEDS: Enoxaparin 40 mg Syringe SC SCH (08:41)
--- NOTE | 2018-02-28 08:41 | CP.PCM.PN ---
Subjective - Date & Time of Evaluation Date of Evaluation: 02/28/18 Time of Evaluation: 08:12 - Subjective Subjective: Patient seen and examined this AM with Attending Lesly Maravilla PGY-1 Patient sitting upright in chair complaining of abdominal discomfort & generalized abdominal pain, 6/10 (unable to characterize) since about 330am this morning. He reports pain is not as severe as it was during admission, but still has prevent him from sleeping. Obstructive series was performed which no evidence of mechanical obstruction or free air. Patient was given one dose of simethicone at that time, which he believes has not helped. He reports his last bowel movement was 3 days ago. Patient denied any fever, chills, nausea or vomiting. Objective - Vital Signs/Intake and Output Vital Signs (last 24 hours): Temp Pulse Resp BP Pulse Ox 98 F 58 L 18 129/56 L 98 02/28/18 08:27 02/28/18 08:27 02/28/18 08:27 02/28/18 08:27 02/28/18 08:27 - Medications Medications: Current Medications Enoxaparin Sodium (Lovenox) 40 mg SC DAILY [facility] PRN Reason: Protocol Last Admin: 02/27/18 08:16 Dose: 40 mg Potassium Chloride/Sodium Chloride (Potassium Chl 20 Meq In Ns) 1,000 mls @ 200 mls/hr IV .Q5H [facility] Last Admin: 02/25/18 23:52 Dose: 200 mls/hr Lactated Ringer's (Lactated Ringer's) 1,000 mls @ 100 mls/hr IV .Q10H [facility] Last Admin: 02/28/18 06:30 Dose: Not Given Ketorolac Tromethamine (Toradol) 15 mg IVP Q6 PRN PRN Reason: Other Last Admin: 02/28/18 00:21 Dose: 15 mg Ondansetron HCl (Zofran Inj) 4 mg IVP Q6H PRN PRN Reason: Nausea/Vomiting Last Admin: 02/27/18 17:34 Dose: 4 mg Pantoprazole Sodium (Protonix Inj) 40 mg IVP BID [facility] Last Admin: 02/27/18 17:33 Dose: 40 mg Pseudoephedrine HCl (Sudafed Tab) 30 mg PO Q4 PRN PRN Reason: Sinus symptoms Last Admin: 02/28/18 03:58 Dose: 30 mg Sucralfate (Carafate Oral Susp) 1 gm PO QID [facility] Last Admin: 02/27/18 22:40 Dose: 1 gm Tamsulosin HCl (Flomax) 0.4 mg PO HS [facility] Last Admin: 02/27/18 22:40 Dose: 0.4 mg - Labs Labs: 02/28/18 06:20 02/28/18 06:20 - Constitutional Appears: No Acute Distress - Head Exam Head Exam: ATRAUMATIC - Eye Exam Additional comments: no scleral icterus - Neck Exam Neck Exam: Full ROM - Cardiovascular Exam Cardiovascular Exam: REGULAR RHYTHM, +S1, +S2 - GI/Abdominal Exam Additional comments: no rigidity, no guarding - Extremities Exam Additional comments: calves nontender - Neurological Exam Neurological Exam: Oriented x3 - Psychiatric Exam Psychiatric exam: Normal Affect, Normal Mood - Skin Skin Exam: Dry, Intact Assessment and Plan - Assessment and Plan (Free Text) Assessment: 2 y/o M with PMH DM & BPH who presented to ED complaining of generalized abdominal pain & nausea, found to have fever of 100.4, HR 103, BP 107/65. Labs were significant for WBC 11.4, lactic acid 4.4, potassium 3.0, magnesium <0.2. TBili 4.4, AST/ALT/ALP 485/460/136, Lipase 6247. Abd CT was performed which showed pancreatitis. Patient was admitted to ICU & has since been downgraded to medsurg. Obstructive series was performed this AM showed no evidence of mechanical obstruction or free air. 1. Pancreatitis likely secondary to duodenitis as per CT -Lab values continue to trend down Lipase(6000+ initially to 192), TBili(4.4 to 1.4), AST(485 to 47) & ALT(460 to 139) - Will continue Iv fluids at rate of 100ml to prevent fluid overload -Will continue IV pain meds PRN -Patient will be made NPO for possible procedure -GI consulted 2. Duodenitis -Ordered carafat -Continue Zofran as needed -Started patient on PPI 3. 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 Parks 4. Elevated LFT's (possibly Fatty liver disease?) 5. DVT prophylaxis -Will continue Lovenox
[2018-03-01] MEDS: Lactated Ringer's 1,000 ML IV SCH (03:08)
[2018-03-01 08:12] VITALS: BP 123/71; PULSE 85; RESP 20; TEMP 97.6; O2SAT 97
[2018-03-01] MEDS: Sucralfate 1 gm/10 ml Oral Susp UD PO SCH ×2 (08:19→11:59)
[2018-03-01] MEDS: Enoxaparin 40 mg Syringe SC SCH (08:20)
--- NOTE | 2018-03-01 09:52 | CP.PCM.PN ---
Subjective - Date & Time of Evaluation Date of Evaluation: 02/28/18 Time of Evaluation: 15:10 - Subjective Subjective: no abd pain Objective - Vital Signs/Intake and Output Vital Signs (last 24 hours): Temp Pulse Resp BP Pulse Ox 97.6 F 85 20 123/71 97 03/01/18 08:11 03/01/18 08:11 03/01/18 08:11 03/01/18 08:11 03/01/18 08:11 Intake and Output: 03/01/18 03/01/18 06:59 18:59 Output Total 1000 Balance -1000 - Medications Medications: Current Medications Alprazolam (Xanax) 0.5 mg PO HS PRN PRN Reason: Anxiety Last Admin: 02/28/18 22:23 Dose: 0.5 mg Ketorolac Tromethamine (Toradol) 15 mg IVP Q6 PRN PRN Reason: Other Last Admin: 02/28/18 11:30 Dose: 15 mg Ondansetron HCl (Zofran Inj) 4 mg IVP Q6H PRN PRN Reason: Nausea/Vomiting Last Admin: 02/27/18 17:34 Dose: 4 mg Pantoprazole Sodium (Protonix Inj) 40 mg IVP BID [facility] Last Admin: 03/01/18 08:22 Dose: 40 mg Pseudoephedrine HCl (Sudafed Tab) 30 mg PO Q4 PRN PRN Reason: Sinus symptoms Last Admin: 02/28/18 21:54 Dose: 30 mg Sucralfate (Carafate Oral Susp) 1 gm PO QID [facility] [place] Last Admin: 03/01/18 08:19 Dose: 1 gm Tamsulosin HCl (Flomax) 0.4 mg PO HS [facility] [place] Last Admin: 02/28/18 21:15 Dose: 0.4 mg - Labs Labs: 02/28/18 06:20 02/28/18 06:20 - Head Exam Head Exam: NORMOCEPHALIC - Neck Exam Neck Exam: Normal Inspection - Respiratory Exam Respiratory Exam: Clear to Ausculation Bilateral, NORMAL BREATHING PATTERN - Cardiovascular Exam Cardiovascular Exam: REGULAR RHYTHM Assessment and Plan - Assessment and Plan (Free Text) Assessment: 62 to mal with abd pain duodenitis with secondary pancreatitis doing well ppi q12 dc planning outpatient egd
--- NOTE | 2018-03-01 10:02 | PQF ---
PROVIDER RESPONSE TEXT: Noninfectious pancreatitis, secondary to infctious duodenitis vs. Medications REVIEWER QUERY TEXT: Clarification of Clinical Diagnostic Findings 2 queries: 1. Please clarify the etiology of Pancreatitis? : if known after the work-up is completed 2. Infectious versus Non-infectious Pancreatitis? : if known OR: Unable to determine Lipase:[id number]->1459->671->192 02/26: CT Abdomen Pelvis: Impression: Findings are most compatible with acute nonspecific duodenitis with significant inflammatory changes in the surrounding mesenteric fat extending to the peripancreatic r egion and in the right retroperitoneum. No definite evidence for perforation. Also noted is a diver ticulum in the 2nd portion of the duodenum. Please correlate with EGD if clinically indicated. The p eripancreatic inflammatory changes are likely secondary to duodenitis rather than primary pancreatiti s. 02/26 Abdomen US : Impression : Hepatomegaly, hepatic steatosis. Otherwise unremarkable study H and P: Sepsis 2/2 Pancreatitis gallstone vs drug induced vs ETOH vs hypertriglyceridemia Elevated Transaminases Elevated Tbili Lipase 6K, Temp 100.4, tachycardia 103-127, WBC 11K with band s, LA 4.4 CT +pancreatitis without mention of abscess/pseudocyst, with reactive duodenitis, no note o f cholecystitis nor cholelithiasis Abd US to eval cholelithiasis/choledocholithiasis Trigs pending, n o hx trauma. Pt on several sulfa, class I/II potentially pancreatitis inducing drugs: furosemide, hydrochlorothiaz sandie, losartan No abx indicated at this time received LR x1, NSx2, continue with LR @ 250cc/hr NPO, zofran for [place] pain control with Toradol 30 mod pain, Dilaudid 0.5 mg severe pain 02/26 GI consult: with pancreatitis, the etiology of which is interesting, possibly this is alcohol b ecause last intake was three days prior to episode, possibly from Lasix which was started few days prior to the episodes or gallstones. The ultrasound is pending to rule out gallbladder. Aggressive IV hydration c ontinues, can have Lasix for now. Pepcid once a day orally. Pain control as needed. We will follow the patient wit h you. Trend LFTs. 02/28 DRAFT Resident/ Attending progress note:Pancreatitis likely secondary to duodenitis as per CT -Lab values continue to trend down Lipase(6000+ initially to 192), TBili(4.4 to 1.4), AST(485 to 47 ) ALT(460 to 139) - Will continue Iv fluids at rate of 100ml to prevent fluid overload -Will continue IV pain meds PRN -Patient will be made NPO for possible procedure -GI consulted The patient's Clinical Indicators include: xx Query created by: Connie Dietrich on 02/28/2018 2:26 PM Electronically signed by: Gianna Beauchamp MD 03/01/2018 10:00 AM
--- NOTE | 2018-03-01 10:37 | CP.PCM.PN ---
Subjective - Date & Time of Evaluation Date of Evaluation: 03/01/18 Time of Evaluation: 10:36 - Subjective Subjective: no overnight events Objective - Vital Signs/Intake and Output Vital Signs (last 24 hours): Temp Pulse Resp BP Pulse Ox 97.6 F 85 20 123/71 97 03/01/18 08:11 03/01/18 08:11 03/01/18 08:11 03/01/18 08:11 03/01/18 08:11 Intake and Output: 03/01/18 03/01/18 06:59 18:59 Output Total 1000 Balance -1000 - Medications Medications: Current Medications Alprazolam (Xanax) 0.5 mg PO HS PRN PRN Reason: Anxiety Last Admin: 02/28/18 22:23 Dose: 0.5 mg Ketorolac Tromethamine (Toradol) 15 mg IVP Q6 PRN PRN Reason: Other Last Admin: 02/28/18 11:30 Dose: 15 mg Ondansetron HCl (Zofran Inj) 4 mg IVP Q6H PRN PRN Reason: Nausea/Vomiting Last Admin: 02/27/18 17:34 Dose: 4 mg Pantoprazole Sodium (Protonix Inj) 40 mg IVP BID [facility] Last Admin: 03/01/18 08:22 Dose: 40 mg Pseudoephedrine HCl (Sudafed Tab) 30 mg PO Q4 PRN PRN Reason: Sinus symptoms Last Admin: 02/28/18 21:54 Dose: 30 mg Sucralfate (Carafate Oral Susp) 1 gm PO QID [facility] Last Admin: 03/01/18 08:19 Dose: 1 gm Tamsulosin HCl (Flomax) 0.4 mg PO HS [facility] Last Admin: 02/28/18 21:15 Dose: 0.4 mg - Labs Labs: 02/28/18 06:20 02/28/18 06:20 - Neck Exam Neck Exam: Normal Inspection - Respiratory Exam Respiratory Exam: Clear to Ausculation Bilateral - Cardiovascular Exam Cardiovascular Exam: REGULAR RHYTHM - GI/Abdominal Exam GI & Abdominal Exam: Soft - Rectal Exam Rectal Exam: NORMAL INSPECTION Assessment and Plan - Assessment and Plan (Free Text) Assessment: 62 yo male with duodenitis/pancreatitis doing well dc planning egd as outpatient pp q12
--- NOTE | 2018-03-01 11:10 | CP.PCM.DIS ---
Provider - Provider Date of Admission: 02/26/18 02:17 Attending physician: Gianna Beauchamp DO Time Spent in preparation of Discharge (in minutes): 30 Hospital Course - Lab Results Lab Results: Micro Results 02/25/18 23:54 Blood-Venous Blood Culture - Final Escherichia Coli 02/25/18 23:54 Blood-Venous Gram Stain - Final 02/26/18 06:00 Naris MRSA Culture (Admit) - Final MRSA NOT DETECTED 02/25/18 23:54 Urine,Clean Catch Urine Culture - Final No Growth (<1,000 CFU/ML) 02/26/18 00:24 Blood-Venous Blood Culture - Preliminary Gram Negative Andrey 02/26/18 00:24 Blood-Venous Gram Stain - Final Most Recent Lab Values WBC 8.1 K/uL (4.8-10.8) 02/28/18 06:20 RBC 3.09 Mil/uL (4.40-5.90) L 02/28/18 06:20 Hgb 8.9 g/dL (12.0-18.0) L 02/28/18 06:20 Hct 25.9 % (35.0-51.0) L 02/28/18 06:20 MCV 83.9 fl (80.0-94.0) 02/28/18 06:20 MCH 28.9 pg (27.0-31.0) 02/28/18 06:20 MCHC 34.4 g/dL (33.0-37.0) 02/28/18 06:20 RDW 15.0 % (11.5-14.5) H 02/28/18 06:20 Plt Count 131 K/uL (130-400) 02/28/18 06:20 MPV 8.0 fl (7.2-11.7) 02/27/18 04:00 Neut % (Auto) 80.0 % (50.0-75.0) H 02/27/18 04:00 Lymph % (Auto) 12.3 % (20.0-40.0) L 02/27/18 04:00 [place] % (Auto) 5.5 % (0.0-10.0) 02/27/18 04:00 Eos % (Auto) 1.9 % (0.0-4.0) 02/27/18 04:00 Baso % (Auto) 0.3 % (0.0-2.0) 02/27/18 04:00 Neut # (Auto) 6.1 K/uL (1.8-7.0) 02/27/18 04:00 Lymph # (Auto) 0.9 K/uL (1.0-4.3) L 02/27/18 04:00 [place] # (Auto) 0.4 K/uL (0.0-0.8) 02/27/18 04:00 Eos # (Auto) 0.1 K/uL (0.0-0.7) 02/27/18 04:00 Baso # (Auto) 0.0 K/uL (0.0-0.2) 02/27/18 04:00 Neutrophils % (Manual) 91 % (42-75) H 02/25/18 21:45 Band Neutrophils % 3 % (0-2) H 02/25/18 21:45 Lymphocytes % (Manual) 1 % (20-50) L 02/25/18 21:45 Reactive Lymphs % 2 % (0-0) H 02/25/18 21:45 Monocytes % (Manual) 3 % (0-10) 02/25/18 21:45 Platelet Estimate Normal (NORMAL) 02/25/18 21:45 pO2 46 mm/Hg (30-55) 02/26/18 03:27 VBG pH 7.44 (7.32-7.43) H 02/26/18 03:27 VBG pCO2 44 mmHg (40-60) 02/26/18 03:27 VBG HCO3 28.5 mmol/L 02/26/18 03:27 VBG Total CO2 31.3 mmol/L (22-28) H 02/26/18 03:27 VBG O2 Sat (Calc) 86.5 % (40-65) H 02/26/18 03:27 VBG Base Excess 5.0 mmol/L (0.0-2.0) H 02/26/18 03:27 VBG Potassium 2.8 mmol/L (3.6-5.2) L 02/26/18 03:27 Sodium 137.0 mmol/L (132-148) 02/26/18 03:27 Chloride 102.0 mmol/L (98-107) 02/26/18 03:27 Glucose 137 mg/dL (75-110) H 02/26/18 03:27 Lactate 2.2 mmol/L (0.7-2.1) H 02/26/18 03:27 FiO2 21.0 % 02/26/18 03:27 Crit Value Called To Nancy najera md 02/25/18 23:14 Crit Value Called By Arsalan 02/25/18 23:14 Crit Value Read Back Y 02/25/18 23:14 Blood Gas Notified Time 231702/25/18 23:14 Sodium 138 mmol/l (132-148) 02/28/18 06:20 Potassium 3.3 MMOL/L (3.6-5.0) L 02/28/18 06:20 Chloride 106 mmol/L (98-107) 02/28/18 06:20 Carbon Dioxide 30 mmol/L (22-30) 02/28/18 06:20 Anion Gap 5 (10-20) L 02/28/18 06:20 BUN 14 mg/dl (9-20) 02/28/18 06:20 Creatinine 0.8 mg/dl (0.8-1.5) 02/28/18 06:20 Est GFR ( Amer) > 60 02/28/18 06:20 Est GFR (Non-Af Amer) > 60 02/28/18 06:20 POC Glucose (mg/dL) 122 mg/dL (65-110) H 02/26/18 03:51 Random Glucose 108 mg/dL (75-110) 02/28/18 06:20 Calcium 8.3 mg/dL (8.4-10.2) L 02/28/18 06:20 Phosphorus 2.0 mg/dl (2.5-4.5) L 02/28/18 06:20 Magnesium 2.3 MG/DL (1.6-2.3) 02/27/18 05:46 Iron 45 ug/dL (49-181) L 02/27/18 04:20 Ferritin 975.0 ng/Ml (17.9-464) H 02/27/18 05:46 Total Bilirubin 1.4 mg/dl (0.2-1.3) H 02/28/18 06:20 Direct Bilirubin 3.5 mg/ml (0.0-0.4) H 02/26/18 15:15 AST 47 U/L (17-59) 02/28/18 06:20 ALT 139 U/L (21-72) H D 02/28/18 06:20 Alkaline Phosphatase 175 U/L (38-126) H 02/28/18 06:20 Total Protein 5.8 G/DL (6.3-8.2) L 02/28/18 06:20 Albumin 3.2 g/dL (3.5-5.0) L 02/28/18 06:20 Globulin 2.6 gm/dL (2.2-3.9) 02/28/18 06:20 Albumin/Globulin Ratio 1.2 (1.0-2.1) 02/28/18 06:20 Triglycerides 299 mg/DL (0-149) H D 02/27/18 05:46 Cholesterol 112 mg/dL (0-199) 02/27/18 05:46 LDL Cholesterol Direct 30 mg/dL (0-129) 02/27/18 05:46 HDL Cholesterol 20 MG/DL (30-70) L 02/27/18 05:46 Lipase 192 U/L (23-300) 02/28/18 06:20 Venous Blood Potassium 2.8 mmol/L (3.6-5.2) L 02/26/18 03:27 Urine Color Yellow (YELLOW) 02/25/18 23:54 Urine Clarity Slighty-cloudy (Clear) 02/25/18 23:54 Urine pH 6.0 (5.0-8.0) 02/25/18 23:54 Ur Specific [place] 1.010 (1.003-1.030) 02/25/18 23:54 Urine Protein Negative mg/dL (NEGATIVE) 02/25/18 23:54 Urine Glucose (UA) Neg mg/dL (Normal) 02/25/18 23:54 Urine Ketones Negative mg/dL (NEGATIVE) 02/25/18 23:54 Urine Blood Negative (NEGATIVE) 02/25/18 23:54 Urine Nitrate Negative (NEGATIVE) 02/25/18 23:54 Urine Bilirubin Negative (NEGATIVE) 02/25/18 23:54 Urine Urobilinogen 2.0 mg/dL (0.2-1.0) 02/25/18 23:54 Ur Leukocyte Esterase Neg [place]/uL (Negative) 02/25/18 23:54 Urine RBC (Auto) 2 /hpf (0-3) 02/25/18 23:54 Urine Microscopic WBC 1 /hpf (0-5) 02/25/18 23:54 Urine Bacteria Occ (<OCC) H 02/25/18 23:54 Alcohol, Quantitative < 10 mg/dl (0-10) 02/25/18 23:54 Hepatitis A IgM Ab Negative (NEGATIVE) 02/27/18 04:20 Hep Bs Antigen Negative (NEGATIVE) 02/27/18 04:20 Hep B Core IgM Ab Negative (NEGATIVE) 02/27/18 04:20 Hepatitis C Antibody Negative (NEGATIVE) 02/27/18 04:20 - Hospital Course Hospital Course: 62 y/o M with PMH DM & BPH who presented to ED complaining of generalized abdominal pain & nausea, found to have fever of 100.4, HR 103, BP 107/65. Labs were significant for WBC 11.4, lactic acid 4.4, potassium 3.0, magnesium <0.2. TBili 4.4, AST/ALT/ALP 485/460/136, Lipase 6247. Abd CT was performed which showed pancreatitis. Patient was admitted to ICU & has since been downgraded to medsurg. Obstructive series was performed this AM showed no evidence of mechanical obstruction or free air. Pt evaluated by GI, developed ileus, mild fluid overload. Patient ileus resolved and diuresed. For follow up PCP and GI in one week. Course by problem below: 1. Pancreatitis likely secondary to duodenitis as per CT -Lab values continue to trend down Lipase(6000+ initially to 192), TBili(4.4 to 1.4), AST(485 to 47) & ALT(460 to 139) - Will continue Iv fluids at rate of 100ml to prevent fluid overload -Will continue IV pain meds PRN -Patient will be made NPO for possible procedure -GI consulted 2. Duodenitis -Ordered carafat -Continue Zofran as needed -Started patient on PPI 3. 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 Parks 5. DVT prophylaxis -Will continue Lovenox Discharge Exam - Head Exam Additional comments: Vitals Reviewed GEN: WDWN, alert, cooperative HEENT: NCAT, PERRL, EOMI HEART: RRR, +S1S2, NO MRG LUNG: CTAB, NO WRR ABD: soft, NT, ND, No HSM, No masses EXT: normal pedal pulses NEURO: awake, alert SKIN: warm, dry PSYCH: normal mood, normal affect Discharge Plan - Discharge Medications Prescriptions: Atorvastatin [Lipitor] 20 mg PO DAILY #30 tab Bumetanide [Bumex] 0.5 mg PO DAILY #30 tab Docusate Sodium [Stool Softener] 100 mg PO DAILY #30 capsule Ezetimibe [Zetia] 10 mg PO DAILY #30 tab Lisinopril [Zestril] 20 mg PO DAILY #30 tablet Pantoprazole Sodium [Protonix] 20 mg PO Q12 #14 tablet. Tamsulosin [Flomax] 0.4 mg PO DAILY #30 cap - Follow Up Plan Condition: SERIOUS Disposition: HOME/ ROUTINE Instructions: Pancreatitis (DC), Acute Abdominal Pain (DC), Acute Abdominal Pain (GEN), Pancreatitis (DC) Referrals: Sancho Parks MD, PhD [Staff Provider] -
== END 2018-03-01 13:25 | disposition home or self-care (01) | DRG 439 ==
LOC: H.ER 20:32 → H.ERHOLD 02-26 02:17 → H.ICU/CCU 02-26 03:17 → H.MEDSURG1 02-27 15:50
PROVIDERS: ADMIT Student in an Organized Health Care Education/Training Program; ATTEND Student in an Organized Health Care Education/Training Program
DX: K85.80 Other acute pancreatitis without necrosis or infection (principal); J98.11 Atelectasis; K29.80 Duodenitis without bleeding; K85.20 Alcohol induced acute pancreatitis without necrosis or infection; K52.9 Noninfective gastroenteritis and colitis, unspecified; E87.6 Hypokalemia; E83.42 Hypomagnesemia; K57.10 Diverticulosis of small intestine without perforation or abscess without bleeding; E11.9 Type 2 diabetes mellitus without complications; I10 Essential (primary) hypertension; E78.00 Pure hypercholesterolemia, unspecified; E87.70 Fluid overload, unspecified; N40.0 Benign prostatic hyperplasia without lower urinary tract symptoms; Z79.82 Long term (current) use of aspirin; Z96.643 Presence of artificial hip joint, bilateral; Z91.041 Radiographic dye allergy status; Z91.010 Allergy to peanuts; Z91.013 Allergy to seafood